=== PATIENT | male | born 1985 | race Caucasian/White ===

== ENCOUNTER 2019-10-07 09:09 | Emergency (ER) | payer SELFPAY ==
[2019-10-07 09:19] VITALS: TEMP 97.8; BMI 22.2
[2019-10-07] MEDS ORDERED: FAMOTIDINE 20 MG/50 ML IVPB 20 MG/50 ML MG IVPB ONE ×2 (10:15→10:40)
[2019-10-07] MEDS ORDERED: SODIUM CHLORIDE 1,000 ML IV STA (10:15)
--- NOTE | 2019-10-07 10:23 | PDOC ---
History of Present Illness - General Chief Complaint: Pain, Acute Stated Complaint: ABD PAIN Time Seen by Provider: 10/07/19 09:35 History Source: Patient Exam Limitations: No Limitations - History of Present Illness Initial Comments: 10/07/19 10:18 Patient is a 34-year-old male with history of hypertension who presents to the ED with complaint of epigastric and left upper quadrant abdominal pain after eating for the last 15 to 20 days. He states the pain lasts about 15 minutes and then resolves. He denies any fevers or chills. He denies any nausea, vomiting or diarrhea. He states the pain is throbbing in nature. He denies any shortness of breath or chest pain. He has not been taking anything for his symptoms. Past History - Past Medical History Allergies/Adverse Reactions: Allergies Allergy/AdvReac Type Severity Reaction Status Date / Time No Known Allergies Allergy Verified 10/07/19 09:19 Home Medications: Ambulatory Orders Omeprazole 20 mg PO DAILY #7 tablet. 10/07/19 COPD: No HTN: Yes - Psycho Social/Smoking Cessation Hx Smoking History: Former smoker Have you smoked in the past 12 months: No If you are a former smoker, when did you quit?: 5 months ago Information on smoking cessation initiated: No Hx Alcohol Use: No Drug/Substance Use Hx: No Review of Systems - Review of Systems Comments:: 10/07/19 10:19 - Review of Systems Able to Perform ROS?: Yes Constitutional: No: Fever, Chills, Loss of Appetite, Night Sweats, Weakness HEENTM: No: Eye Pain, Vision changes, Ear Pain, Throat Pain, Throat Swelling, Mouth Pain, Difficulty Swallowing Respiratory: No: Cough, Shortness of Breath, Wheezing, Sputum Production Cardiac (ROS): No: Chest Pain, Chest Tightness, Palpitations, Irregular Heart Beat, Edema ABD/GI: No: Nausea, Vomiting, Diarrhea; positive epigastric and left upper quadrant abdominal pain after eating : No Dysuria, No Hematuria, No Frequency, No Urgency, No Vaginal Discharge/ Pain, No Penile Discharge/Pain Musculoskeletal: No: Muscle Pain, Back Pain, Joint Pain, Muscle Weakness, Neck Pain Integumentary: No: Lesions, Rash Neurological: No: Headache, Numbness, Tingling, Weakness, Speech Difficulties *Physical Exam - Vital Signs Last Vital Signs Temp Pulse Resp BP Pulse Ox 97.8 F 77 16 146/76 100 10/07/19 09:16 10/07/19 09:16 10/07/19 09:16 10/07/19 09:16 10/07/19 09:16 - Physical Exam 10/07/19 10:20 - Physical Exam General Appearance: Nourished, Appropriately Dressed, No Distress HEENT: EOMI, Normal Voice, No Muffled/Hoarse voice, No Nasal Congestion, No Rhinorrhea, Hearing Grossly Normal Neck: Supple, No Lymphadenopathy (R), No Lymphadenopathy (L), No Rigidity, No Decreased range of motion Respiratory/Chest: Lungs Clear, Normal Breath Sounds. No Respiratory Distress, No Accessory Muscle Use Cardiovascular: Regular Rhythm, Regular Rate, S1, S2, systolic murmur appreciated. Gastrointestinal/Abdominal: Normal Bowel Sounds, Soft. Non-tender, No Guarding , No Rebound, No Rigidity; no reproducible abdominal tenderness to palpation. Bowel sounds normal. Musculoskeletal: Normal Inspection. No Decreased Range of Motion Extremity: Normal Capillary Refill, Normal Inspection Integumentary: Normal Color, Dry. No Rash Neurologic: field services director II-XII NML intact, Fully Oriented, Alert, Normal Mood/Affect, Normal Response ED Treatment Course - LABORATORY CBC & Chemistry Diagram: 10/07/19 10:50 10/07/19 10:50 Medical Decision Making - Medical Decision Making 10/07/19 10:22 Assessment: Pt is a 34 y/o male with epigastric and LUQ abdominal pain for the last 15-20 days after eating. Plan: -labs -saline lock -pepcid -will reassess 10/07/19 13:02 The patient has been made aware that his labs are all within normal limits. Secondary to the patient not having any reproducible abdominal pain and normal labs, further imaging in the ED is not indicated. We will refer the patient to GI for possible endoscopy and further work-up. We will send him home with a prescription for Prilosec and have him follow-up with GI. He understands this treatment plan and the patient is stable for discharge. Discharge - Discharge Information Problems reviewed: Yes Clinical Impression/Diagnosis: Epigastric abdominal pain Condition: Stable Disposition: HOME - Additional Discharge Information Prescriptions: Omeprazole 20 mg PO DAILY #7 tablet. - Follow up/Referral Referrals: Duane Lloyd MD [Staff Physician] - 1 week - Patient Discharge Instructions Patient Printed Discharge Instructions: DI for Gastritis, DI for Abdominal Pain -Adult Additional Instructions: Eat a bland diet and avoid foods that are greasy, fried, spicy, acidic or caffeinated. Be sure to follow-up with the GI doctor within 1 week for repeat evaluation. Take the medication that was prescribed and complete the entire course. Print Language: CROATIAN - Post Discharge Activity Work/Back to School Note: Back to Work
[2019-10-07 11:09] LABS: BASO % 0.7 % (0-2.0); EOS % 0.6 % (0-4.5); HEMATOCRIT 48.6 % (35.4-49); HEMOGLOBIN 17.2 GM/dL (11.7-16.9); LYMPH % 29.4 % (8-40); MCH 32.1 pg (25.7-33.7); MCHC 35.4 g/dl (32.0-35.9); MEAN CELL VOLUME 90.8 fl (80-96); MEAN PLT VOLUME 9.9 fl (7.5-11.1); MONO % 8.6 % (3.8-10.2); NEUT % 60.7 % (42.8-82.8); PLATELET COUNT 191 K/MM3 (134-434); RBC 5.35 M/mm3 (4.00-5.60); RDW 12.7 % (11.9-15.9); WHITE BLOOD COUNT 4.4 K/mm3 (4.0-10.0)
[2019-10-07 11:38] LABS: ALBUMIN 4.9 g/dl (3.4-5.0); BLOOD UREA NITROGEN 9.7 mg/dL (7-18); CALCIUM 9.8 mg/dL (8.5-10.1); CREATININE 0.8 mg/dL (0.55-1.3); POTASSIUM 3.6 mmol/L (3.5-5.1); TOT PROT 8.4 g/dl (6.4-8.2)
[2019-10-07 12:16] LABS: PH,URINE 8.5 (5.0-8.0); URINE APPEARANCE CLEAR; URINE BILIRUBIN NEGATIVE (NEGATIVE); URINE COLOR YELLOW; URINE GLUCOSE (UA) NEGATIVE (NEGATIVE); URINE KETONE NEGATIVE (NEGATIVE); URINE LEUK ESTERASE NEGATIVE (NEGATIVE); URINE NITRITE NEGATIVE (NEGATIVE); URINE PROTEIN NEGATIVE (NEGATIVE); URINE UROBILINOGEN 0.2 mg/dL (0.2-1.0)
[2019-10-07 13:29] VITALS: BP 130/73; PULSE 71
== END 2019-10-07 13:28 | disposition home or self-care (01) ==
LOC: JER 09:09
PROC: 3E033GC Introduction of Other Therapeutic Substance into Peripheral Vein, Percutaneous Approach (ICD-10-PCS; principal; 2019-10-07)
DX: R10.13 Epigastric pain (principal); I10 Essential (primary) hypertension
CPT/HCPCS: 36415; 80053; 81003; 83690; 85025; 99284-25; J7030